=== PATIENT | male | born 1960 | race Caucasian/White ===

== ENCOUNTER → 2019-08-28 | Outpatient (CLI) | payer MEDICARE ==
[2019-08-28 16:13] LABS: BACTERIA,URINE 0 /HPF (0-FEW); BILIRUBIN,URINE NEG (NEG); CLARITY,URINE HAZY; COLOR,URINE YELLOW; GLUCOSE,URINE NEG (NEG); NITRITE,URINE NEG (NEG); RBC,URINE 20-40 /HPF (0-2); SQUAMOUS EPITHELIAL CELL,UR FEW /LPF; UROBILINOGEN,URINE 0.2 mg/dL (0.2 mg/dL)
== END | disposition home or self-care (01) ==
LOC: LAB 14:34
PROVIDERS: ATTEND Family Medicine
DX: Z12.5 Encounter for screening for malignant neoplasm of prostate (principal); N31.9 Neuromuscular dysfunction of bladder, unspecified
CPT/HCPCS: 81001; G0103

== ENCOUNTER 2020-10-06 10:12 | Emergency (ER) | payer MEDICARE ==
[~2020-10-06] VITALS: Ht 172.7 cm; Wt 78.3 kg
[2020-10-06 10:30] VITALS: BP 141/79
[2020-10-06 11:24] LABS: CALCIUM 9.3 mg/dL (8.5-10.1); CREATININE 0.8 mg/dL (0.7-1.3); GFR 98.6
[2020-10-06 11:27] LABS: MAGNESIUM 2.1 mg/dL (1.8-2.4); PHOSPHORUS 3.7 mg/dL (2.6-4.7)
[2020-10-06] MEDS ORDERED: METH4TAB2 PO (11:47)
[2020-10-06] MEDS ORDERED: METH-38 PO (11:47)
--- NOTE | 2020-10-06 11:47 | PHYS DOC ---
Past History Past Medical History: High Cholesterol, Hypertension, Other Additional Past Medical Histor: PROGRESSIVE MS Past Surgical History: Appendectomy, Tonsillectomy, Other Additional Past Surgical Histo: BLADDER STONE REMOVED Alcohol Use: None Adult General Chief Complaint Chief Complaint: NEURO SYMPTOMS/DEFICITS [facility] [place] Patient is a 5-year-old male with past medical history of multiple sclerosis who presents to the emergency room complaining of intermittent episodes of his right arm and leg spasming up. He states that his hand completely closes and he is unable to open it in his leg straightened straight out. He is unable to walk during these episodes. He states these episodes occur for a couple of minutes and have been 6 or 7 times a night for the last couple weeks. He denies any other symptoms. He does not currently have any symptoms. He saw his primary care physician who recommended he discuss that with his neurologist. He discussed it with his neurologist to put him on a muscle relaxer. He states the muscle actually was not helping. They then doubled the muscle relaxer and he had an allergic reaction to it. Review of Systems Review of Systems Complete ROS is negative unless otherwise documented in HPI Allergies Allergies Allergies Coded Allergies Type Severity Reaction Last Updated Verified Penicillins Allergy Unknown Rash 10/06/20 Yes tizanidine Allergy Unknown Rash 10/06/20 Yes Physical Exam Physical Exam General: Awake, alert, NAD. Well Nourished, well hydrated. Cooperative HEENT: Atraumatic, EOMI, PERRL, airway patent, moist oral mucosa Neck: Supple, trachea midline Respiratory: CTA bilaterally, normal effort, no wheezing/crackles CV: RRR, no murmur, cap refill <2 GI: Soft, nondistended, nontender, no masses MSK: No obvious deformities Skin: Warm, dry, intact Neuro: A&O x3, speech NL, 5/5 strength in BUE/BLE distally and proximally, CN 2- 12 intact, cerebellar testing normal Psych: Normal affect, normal mood, not suicidal or homicidal Current Patient Data Vital Signs Vital Signs Date Time Temp Pulse Resp B/P (MAP) Pulse Ox O2 Delivery O2 Flow Rate FiO2 10/06/20 10:30 98.0 73 18 141/79 (99) 99 Room Air Lab Results Laboratory Tests Test 10/06/20 11:02 Sodium Level 137 mmol/L (136-145) Potassium Level 4.0 mmol/L (3.5-5.1) Chloride Level 102 mmol/L (98-107) Carbon Dioxide Level 27 mmol/L (21-32) Anion Gap 8 (6-14) Blood Urea Nitrogen 14 mg/dL (8-26) Creatinine 0.8 mg/dL (0.7-1.3) Estimated GFR (Cockcroft-Gault) 98.6 Glucose Level 110 mg/dL (70-99) H Calcium Level 9.3 mg/dL (8.5-10.1) Phosphorus Level 3.7 mg/dL (2.6-4.7) Magnesium Level 2.1 mg/dL (1.8-2.4) EKG EKG [] Radiology/Procedures Radiology/Procedures [] Heart Score Risk Factors: Risk Factors: DM, Current or recent (<one month) smoker, HTN, HLP, family his tory of CAD, obesity. Risk Scores: Risk Factors: DM, Current or recent (<one month) smoker, HTN, HLP, family history of CAD, obesity. Course & Med Decision Making Course & Med Decision Making Pertinent Labs and Imaging studies reviewed. (See chart for details) Patient is a 59-year-old male with past medical history of multiple sclerosis who presents to the emergency room complaining of episodes of severe muscle spasticity. Patient does not currently have any physical exam findings of this. Is likely this is related to his MS. Electrolyte lab was ordered to evaluate for other causes of severe muscle spasms and were normal. Patient will be placed on steroids and a different muscle relaxer to help with his MS symptoms. We discussed that if his symptoms were to occur and not improve that he should come to the emergency room at that time would likely need admission for neurology evaluation. Patient's test results and vitals while in the ED were fully reviewed and discussed with the patient. Patient is stable and at this time does not need admission to the hospital. We have discussed strict return precautions and the importance of following up with their Primary Care Physician. Patient stated understanding and was given an opportunity to ask any questions. Patient is in agreement with plan. Dragon Disclaimer Dragon Disclaimer This electronic medical record was generated, in whole or in part, using a voice recognition dictation system. Departure Departure: Impression: Primary Impression: Multiple sclerosis exacerbation Disposition: 01 DC HOME SELF CARE/HOMELESS Condition: STABLE Referrals: KATARZYNA WIN MD (PCP) Patient Instructions: Multiple Sclerosis Scripts Methocarbamol (ROBAXIN-750) 750 Mg Tablet 1 TAB PO TID PRN for MUSCLE SPASTICITY for 30 Days, #90 TAB 0 Refills Prov: SUNSHINE SALOMON MD 10/06/20 Methylprednisolone (MEDROL) 4 Mg Tab.ds.pk 1 PKG PO UD for MS, #1 PKG Prov: SUNSHINE SALOMON MD 10/06/20 SUNSHINE SALOMON MD Oct 06, 2020 11:47
== END 2020-10-06 12:03 | disposition home or self-care (01) ==
LOC: ER 10:12
DX: G35 Multiple sclerosis (principal); E78.00 Pure hypercholesterolemia, unspecified; I10 Essential (primary) hypertension; Z88.0 Allergy status to penicillin; Z88.8 Allergy status to other drugs, medicaments and biological substances
CPT/HCPCS: 36415; 80048; 83735; 84100; 99284

== ENCOUNTER → 2020-10-26 | Emergency (ER) | payer MEDICARE ==
[2020-10-06 10:30] VITALS: BP 141/79
[~2020-10-26] MED LIST: CYCLOBENZAPRINE 10 MG TABLET. PO ONE; DEXAMETHASONE 4 MG TABLET PO ONE; METH-38 PO; METH4TAB2 PO; diazePAM 5 MG TABLET. PO ONE
[2020-10-26 16:43] LABS: BASO % 1 % (0-3); EOS % 1 % (0-3); HEMATOCRIT 43.3 % (39.0-53.0); HEMOGLOBIN 14.7 g/dL (13.0-17.5); LYMPH # 0.7 x10^3/uL (1.0-4.8); LYMPH % 11 % (24-48); MEAN CORPUSCULAR HEMOGLOBIN 33 pg (25-35); MEAN CORPUSCULAR HGB CONC 34 g/dL (31-37); MEAN CORPUSCULAR VOLUME 98 fL (79-100); MONO # 0.3 x10^3/uL (0.0-1.1); MONO % 4 % (0-9); NEUT # 5.7 x10^3uL (1.8-7.7); NEUT % 84 % (31-73); PLATELET COUNT 173 x10^3/uL (140-400); RED BLOOD COUNT 4.42 x10^6/uL (4.30-5.70); RED CELL DISTRIBUTION WIDTH 13.4 % (11.5-14.5); WHITE BLOOD COUNT 6.8 x10^3/uL (4.0-11.0)
[2020-10-26 19:41] LABS: ALBUMIN 4.3 g/dL (3.4-5.0); ALBUMIN/GLOBULIN RATIO 1.2 (1.0-1.7); TOTAL PROTEIN 7.9 g/dL (6.4-8.2)
[2020-10-26 19:42] LABS: CALCIUM 9.4 mg/dL (8.5-10.1); CREATININE 0.8 mg/dL (0.7-1.3); GFR 98.3; POTASSIUM 3.8 mmol/L (3.5-5.1); TOTAL BILIRUBIN 0.5 mg/dL (0.2-1.0)
[2020-10-26 19:43] LABS: BILIRUBIN,URINE NEG (NEG); CLARITY,URINE HAZY; COLOR,URINE YELLOW; GLUCOSE,URINE NEG (NEG); NITRITE,URINE NEG (NEG); RBC,URINE TNTC /HPF (0-2); UROBILINOGEN,URINE 0.2 mg/dL (0.2 mg/dL)
[2020-10-26 19:44] LABS: BACTERIA,URINE 0 /HPF (0-FEW)
== END ==
LOC: ER 11:50
DX: M62.838 Other muscle spasm (principal); M79.601 Pain in right arm; M79.604 Pain in right leg; Z88.0 Allergy status to penicillin; Z88.8 Allergy status to other drugs, medicaments and biological substances
CPT/HCPCS: 36415; 80053; 81001; 82550; 85025; 87086; 99284; J8540; 99283